=== PATIENT | female | born 1970 | race Caucasian/White ===

== ENCOUNTER 2021-07-31 09:28 | Emergency (ER) | payer SELFPAY ==
[2021-07-31] MEDS ORDERED: ADENOSINE 6 MG/ 2ML VIAL IV ONE (10:34)
[2021-07-31] MEDS ORDERED: METOPROLOL TARTRATE 5 MG/5 ML INJ IV ONE (10:35)
[2021-07-31] MEDS ORDERED: NA CHLORIDE 0.9% 1,000 ML ONE (10:35)
[2021-07-31 10:41] LABS: Absolute Lymphocytes (CBC) 1.2 K/uL (0.7-4.9); Lymphocytes % 8.1 % (15.3-44.8); MPV 9.2 fL (7.6-11.3)
[2021-07-31 10:44] LABS: Protime INR 0.91
[2021-07-31 10:44] LABS: Urine Blood Trace-intact (Negative); Urine Glucose Negative (Negative); Urine Protein Negative (Negative)
[2021-07-31] MEDS ORDERED: METOPROLOL TAR 50 MG TAB ONE (10:46)
--- NOTE | 2021-07-31 10:54 | RAD REPORT ---
EXAM DESCRIPTION: RAD - Chest Single View - 07/31/2021 10:44 am CLINICAL HISTORY: SOB Chest pain. COMPARISON: No comparisons FINDINGS: Portable technique limits examination quality. The lungs are emphysematous but grossly clear. The heart is normal in size. No displaced fractures. IMPRESSION: Mild COPD. The USPSTF recommends annual screening for lung cancer with low-dose CT (LDCT) in adults aged 50 to 80 years who have a 20 pack-year smoking history and currently smoke or have quit within the past 15 years.
[2021-07-31 11:01] LABS: ALT/SGPT 38 U/L (12-78); AST/SGOT 40 U/L (15-37); Albumin 3.3 g/dL (3.4-5.0); Alkaline Phosphatase 104 U/L (45-117); BUN Blood Urea Nitrogen 11 mg/dL (7-18); Bicarbonate 25 mmol/L (21-32); Bilirubin Direct < 0.1 mg/dL (0-0.2); Bilirubin Total 0.3 mg/dL (0.2-1.0); Glucose Level 158 mg/dL (74-106); NT PRO-BNP 2143 pg/mL (<125); Potassium 3.9 mmol/L (3.5-5.1); Protein, Total 7.7 g/dL (6.4-8.2); Sodium Level 138 mmol/L (136-145); Troponin (Emerg Dept Use Only) < 0.02 ng/mL (0.0-0.045)
--- NOTE | 2021-07-31 11:24 | EDPHYS ---
Physician Documentation [facility] Name: Renea Srivastava Age: 50 yrs Sex: Female : 1970 Arrival Date: 07/31/2021 Time: 09:29 Bed 8 Private MD: ED Physician Aries Muhammad HPI: 07/31 10:34 This 50 yrs old Female presents to ER via Ambulatory with complaints of Chest melvin Pain, Shortness Of Breath. 10:34 The patient or guardian reports chest pain that is located primarily in the substernal melvin area. Onset: just prior to arrival, this morning, today. The pain radiates to Associated signs and symptoms: Pertinent positives: dizziness, lightheadedness. The chest pain is described as a pressure. Severity of pain: At its worst the pain was mild in the emergency department the pain is unchanged. The patient has not experienced similar symptoms in the past. Historical: - Allergies: 09:49 Doxycycline; rey - Home Meds: 09:49 None [Active]; rey - PMHx: 09:49 None; rey - PSHx: 09:49 None; rey - Immunization history:: Adult Immunizations up to date. - Social history:: Smoking status: Patient reports the use of cigarette tobacco products, smokes one pack cigarettes per day. ROS: 10:35 Constitutional: Negative for fever, chills, and weight loss, Eyes: Negative for injury, melvin pain, redness, and discharge, ENT: Negative for injury, pain, and discharge, Neck: Negative for injury, pain, and swelling, Respiratory: Negative for shortness of breath, cough, wheezing, and pleuritic chest pain, Abdomen/GI: Negative for abdominal pain, nausea, vomiting, diarrhea, and constipation, Back: Negative for injury and pain, : Negative for injury, bleeding, discharge, and swelling, MS/Extremity: Negative for injury and deformity, Skin: Negative for injury, rash, and discoloration, Neuro: Negative for headache, weakness, numbness, tingling, and seizure, Psych: Negative for depression, anxiety, suicide ideation, homicidal ideation, and hallucinations, Allergy/Immunology: Negative for hives, rash, and allergies, Endocrine: Negative for neck swelling, polydipsia, polyuria, polyphagia, and marked weight changes, Hematologic/Lymphatic: Negative for swollen nodes, abnormal bleeding, and unusual bruising. 10:35 Cardiovascular: Positive for chest pain, palpitations. Exam: 10:35 Constitutional: This is a well developed, well nourished patient who is awake, alert, melvin and in no acute distress. Head/Face: Normocephalic, atraumatic. Eyes: Pupils equal round and reactive to light, extra-ocular motions intact. Lids and lashes normal. Conjunctiva and sclera are non-icteric and not injected. Cornea within normal limits. Periorbital areas with no swelling, redness, or edema. ENT: Nares patent. No nasal discharge, no septal abnormalities noted. Tympanic membranes are normal and external auditory canals are clear. Oropharynx with no redness, swelling, or masses, exudates, or evidence of obstruction, uvula midline. Mucous membranes moist. Neck: Trachea midline, no thyromegaly or masses palpated, and no cervical lymphadenopathy. Supple, full range of motion without nuchal rigidity, or vertebral point tenderness. No Meningismus. Chest/axilla: Normal chest wall appearance and motion. Nontender with no deformity. No lesions are appreciated. Respiratory: Lungs have equal breath sounds bilaterally, clear to auscultation and percussion. No rales, rhonchi or wheezes noted. No increased work of breathing, no retractions or nasal flaring. Abdomen/GI: Soft, non-tender, with normal bowel sounds. No distension or tympany. No guarding or rebound. No evidence of tenderness throughout. Back: No spinal tenderness. No costovertebral tenderness. Full range of motion. Skin: Warm, dry with normal turgor. Normal color with no rashes, no lesions, and no evidence of cellulitis. MS/ Extremity: Pulses equal, no cyanosis. Neurovascular intact. Full, normal range of motion. Neuro: Awake and alert, GCS 15, oriented to person, place, time, and situation. Cranial nerves II-XII grossly intact. Motor strength 5/5 in all extremities. Sensory grossly intact. Cerebellar exam normal. Normal gait. Psych: Awake, alert, with orientation to person, place and time. Behavior, mood, and affect are within normal limits. 10:35 Cardiovascular: Rate: tachycardic, actual rate is 167 bpm, Rhythm: regular, Pulses: Pulses are 4+ in bilateral radial, brachial, femoral, popliteal, posterior tibial and and dorsalis pedis arteries.. Heart sounds: normal, Edema: is not appreciated, JVD: is not appreciated. 10:35 ECG was reviewed by the Attending Physician. Vital Signs: 09:45 BP 114 / 102; Pulse 160; Resp 20; Temp 98.6(O); Pulse Ox 100% ; Weight 41.73 kg; Height rey 5 ft. (152.40 cm); 11:30 BP 138 / 82; Pulse 92; Resp 21; Pulse Ox 98% ; bp 12:02 BP 127 / 83; Pulse 86; Resp 28; Pulse Ox 99% ; bp 09:45 Body Mass Index 17.97 (41.73 kg, 152.40 cm) rey MDM: 10:28 Patient medically screened. melvin 11:24 Differential diagnosis: abnormal EKG, acute myocardial infarction, acute pericarditis, melvin anxiety, pleurisy, pulmonary embolus, unstable angina. HEART Score: History: Slightly Suspicious (0), ECG: Non specific repolarization disturbance / LBTB / PM (1), Age: > 45 and < 65 years (1), Risk Factors: 1 or 2 risk factors (1), [Active Smoker] [+ Family HX] Troponin: < or = 1 x Normal Limit (0). The patient was given aspirin in the Emergency Department. The patient's deep vein thrombosis risk score was calculated as follows: Total Score: 0. This patient was found to be at low risk for a deep vein thrombosis by using the Well's assessment criteria. The patient's pulmonary embolism risk score was calculated as follows: the patients heart rate is greater than 100 beats per minute (1.5 Pts) Total Score: 0-2 points. This patient was found to be at low risk for a pulmonary embolism by using the Well's assessment criteria. SOFÍA Risk Score: TOTAL SCORE = 0. Data reviewed: vital signs, nurses notes, lab test result(s), EKG, radiologic studies, plain films. Data interpreted: social media editor: rate is 168 beats/min, rhythm is supraventricular tachycardia, Pulse oximetry: on room air is 100 %. Test interpretation: by ED physician or midlevel provider: ECG, plain radiologic studies. Counseling: I had a detailed discussion with the patient and/or guardian regarding: the historical points, exam findings, and any diagnostic results supporting the discharge/admit diagnosis, lab results, radiology results, the need for outpatient follow up, for definitive care, a label tacker, a family practitioner. 07/31 10:27 Order name: Basic Metabolic Panel; Complete Time: 11:22 bp 07/31 10:27 Order name: CBC with Diff; Complete Time: 11: bp 07/31 10:27 Order name: LFT's; Complete Time: 11:22 bp 07/31 10:27 Order name: Magnesium; Complete Time: 11: bp 07/31 10:27 Order name: NT PRO-BNP; Complete Time: 11: bp 07/31 10:27 Order name: PT-INR; Complete Time: 11: bp 07/31 10:27 Order name: Troponin (emerg Dept Use Only); Complete Time: 11: bp 07/31 10:27 Order name: XRAY Chest (1 view); Complete Time: 11:22 bp 07/31 10:29 Order name: TSH melvin 07/31 10:29 Order name: Thyroid Stimulating Hormone EDMS 07/31 10:44 Order name: Urine Dipstick-Ancillary; Complete Time: 11:22 EDMS 07/31 10:49 Order name: Urine --Ancillary (enter results); Complete Time: 11:22 dh3 07/31 10:27 Order name: EKG; Complete Time: 10:27 bp 07/31 10:27 Order name: Cardiac monitoring; Complete Time: 10:35 bp 07/31 10:27 Order name: EKG - Nurse/Tech; Complete Time: 10:35 bp 07/31 10:27 Order name: IV Saline Lock; Complete Time: 10:36 bp 07/31 10:27 Order name: Labs collected and sent; Complete Time: 10:36 bp 07/31 10:27 Order name: O2 Per Protocol; Complete Time: 10:36 bp 07/31 10:27 Order name: O2 Sat Monitoring; Complete Time: 10:52 bp 07/31 10:31 Order name: Urine Dipstick-Ancillary (obtain specimen); Complete Time: 10:49 bp 07/31 10:31 Order name: Urine Test (obtain specimen); Complete Time: 10:49 bp 07/31 11:22 Order name: EKG; Complete Time: 11:23 melvin 07/31 11:22 Order name: EKG - Nurse/Tech; Complete Time: 12:02 melvin EC:35 Rate is 167 beats/min. Rhythm is regular. QRS [place] is Normal. MO interval is normal. melvin QRS interval is normal. QT interval is normal. No Q waves. T waves are Normal. No ST changes noted. Clinical impression: SVT. Interpreted by me. Reviewed by me. Administered Medications: 10:38 CANCELLED (Duplicate Order): Lopressor (metoprolol) 5 mg IVP once; Hold for SBP <100 or melvin HR <60. 10:45 Drug: NS 0.9% 1000 ml Route: IV; Rate: 1 bolus; Site: right antecubital; bp 11:33 Follow up: IV Status: Completed infusion; IV Intake: 1000ml bp 10:45 Drug: Lopressor (metoprolol TARTRATE) 50 mg Route: PO; bp 11:33 Follow up: Response: No adverse reaction bp 10:45 Drug: Lopressor (metoprolol) 2.5 mg Route: IVP; Site: right antecubital; bp 11:33 Follow up: Response: No adverse reaction bp 11:00 Drug: Aspirin Chewable Tablet 162 mg Route: PO; bp 11:33 Follow up: Response: No adverse reaction bp 11:29 Not Given (Physician Discretion): Adenocard (adenosine) 6 mg IVP once bp 11:29 Not Given (Physician Discretion): Lopressor (metoprolol) 2.5 mg IVP once; Hold for SBP bp <100 or HR <60. Disposition Summary: 07/31/21 11:23 Discharge Ordered Location: Home melvin Problem: new melvin Symptoms: have improved melvin Condition: Stable melvin Diagnosis - Supraventricular tachycardia melvin - COPD/ Chronic obstructive pulmonary disease, unspecified melvin Followup: melvin - With: Private Physician - When: 2 - 3 days - Reason: Recheck today's complaints, Continuance of care, Re-evaluation by your physician Followup: melvin - With: - When: 2 - 3 days - Reason: Recheck today's complaints, Re-evaluation by your physician Discharge Instructions: - Discharge Summary Sheet melvin - Chronic Obstructive Pulmonary Disease melvin - Supraventricular Tachycardia, Adult melvin - Supraventricular Tachycardia, Adult, [id number] melvin - Aspirin and Your Heart melvin Forms: - Medication Reconciliation Form melvin - Thank You Letter melvin - Antibiotic Education melvin - Prescription Opioid Use melvin Prescriptions: - Xopenex HFA 45 mcg/actuation Inhalation HFA aerosol inhaler - inhale 2 puff by INHALATION route every 4 hours; 1 Pump; Refills: 0, Product melvin Selection Permitted - Metoprolol Tartrate 25 mg Oral Tablet - take 1 tablet by ORAL route 2 times per day with a meal; 20 tablet; Refills: 0, melvin Product Selection Permitted - Medrol (Alfredo) 4 mg Oral Tablets, Dose Pack - take 1 tablet by ORAL route as directed - follow package instructions; 1 melvin packet; Refills: 0, Product Selection Permitted Signatures: Dispatcher [employer] Aries Hobbs MD MD cha Peltier, Brian RN RN bp Au-StagerLisa Corrections: (The following items were deleted from the chart) 10:38 10:29 Lopressor (metoprolol) 5 mg IVP once; Hold for SBP <100 or HR <60. ordered. melvin charles
--- NOTE | 2021-07-31 11:24 | ER ---
Nurse's Notes [facility] Name: Renea Srivastava Age: 50 yrs Sex: Female : 1970 Arrival Date: 07/31/2021 Time: 09:29 Bed 8 Private MD: Diagnosis: Supraventricular tachycardia;COPD/ Chronic obstructive pulmonary disease, unspecified Presentation: 07/31 09:45 Chief complaint: Patient states: chest pain, SOB. Coronavirus screen: Vaccine status: rye Patient reports being unvaccinated. Ebola Screen: Patient denies travel to an Ebola-affected area in the 21 days before illness onset. Initial Sepsis Screen: Does the patient meet any 2 criteria? No. Patient's initial sepsis screen is negative. Does the patient have a suspected source of infection? No. Patient's initial sepsis screen is negative. Initial Sepsis Screen: Does the patient meet any 2 criteria? RR > 20 per min. HR > 90 bpm. Initial Sepsis Screen: Does the patient meet any 2 criteria? Yes No. Patient's initial sepsis screen is negative. Does the patient have a suspected source of infection?. Risk Assessment: Do you want to hurt yourself or someone else? Patient reports no desire to harm self or others. Onset of symptoms was July 30, 2021. 09:45 Method Of Arrival: Ambulatory rey 09:45 Acuity: STEPHEN 3 rey Triage Assessment: 09:49 General: Appears in no apparent distress. Behavior is calm, cooperative. rey Cardiovascular: Chest pain. Historical: - Allergies: 09:49 Doxycycline; rey - Home Meds: 09:49 None [Active]; rey - PMHx: 09:49 None; rey - PSHx: 09:49 None; rey - Immunization history:: Adult Immunizations up to date. - Social history:: Smoking status: Patient reports the use of cigarette tobacco products, smokes one pack cigarettes per day. Screenin:00 Abuse screen: Denies threats or abuse. Denies injuries from another. Nutritional bp screening: No deficits noted. Tuberculosis screening: No symptoms or risk factors identified. Fall Risk None identified. Assessment: 09:50 General: SEE TRIAGE NOTE. bp 11:15 Reassessment: PT CONVERTED TO SR. MD NOTIFIED. bp 12:02 Reassessment: PT D/C HOME AMBULATORY WITH FAMILY, DX WITH COPD AND SVT. bp Vital Signs: 09:45 BP 114 / 102; Pulse 160; Resp 20; Temp 98.6(O); Pulse Ox 100% ; Weight 41.73 kg; Height rey 5 ft. (152.40 cm); 11:30 BP 138 / 82; Pulse 92; Resp 21; Pulse Ox 98% ; bp 12:02 BP 127 / 83; Pulse 86; Resp 28; Pulse Ox 99% ; bp 09:45 Body Mass Index 17.97 (41.73 kg, 152.40 cm) rey ED Course: 09:29 Patient arrived in ED. as 09:49 Triage completed. rey 09:49 Arm band placed on. rey 10:00 Patient has correct armband on for positive identification. Placed in gown. Bed in low mh5 position. Call light in reach. Side rails up X 1. Adult w/ patient. Warm blanket given. engine monitor on. Pulse ox on. NIBP on. 10:00 EKG done, by ED staff, reviewed by Aries Muhammad MD. health system 10:07 Abdoul Dorman, FAISAL is Primary Nurse. bp 10:28 Aries Muhammad MD is Attending Physician. [facility] 10:35 Thyroid Stimulating Hormone Sent. 5 10:35 TSH Sent. 5 10:36 Basic Metabolic Panel Sent. 5 10:36 CBC with Diff Sent. 5 10:36 LFT's Sent. 5 10:36 Magnesium Sent. 5 10:36 NT PRO-BNP Sent. health system 10:36 PT-INR Sent. health system 10:36 Troponin (emerg Dept Use Only) Sent. health system 10:36 Initial lab(s) drawn, by wa, sent to lab. Urine collected: clean catch specimen, clear. 5 Inserted saline lock: 20 gauge in left antecubital area, using aseptic technique. Blood collected. 10:44 XRAY Chest (1 view) In Process Unspecified. EDMS 11:23 Quinn White MD is Referral Physician. [facility] 12:03 No provider procedures requiring assistance completed. IV discontinued, intact, bp bleeding controlled, No redness/swelling at site. Pressure dressing applied. Patient maintains SpO2 saturation greater than 95% on room air. Administered Medications: 10:38 CANCELLED (Duplicate Order): Lopressor (metoprolol) 5 mg IVP once; Hold for SBP <100 or melvin HR <60. 10:45 Drug: NS 0.9% 1000 ml Route: IV; Rate: 1 bolus; Site: right antecubital; bp 11:33 Follow up: IV Status: Completed infusion; IV Intake: 1000ml bp 10:45 Drug: Lopressor (metoprolol TARTRATE) 50 mg Route: PO; bp 11:33 Follow up: Response: No adverse reaction bp 10:45 Drug: Lopressor (metoprolol) 2.5 mg Route: IVP; Site: right antecubital; bp 11:33 Follow up: Response: No adverse reaction bp 11:00 Drug: Aspirin Chewable Tablet 162 mg Route: PO; bp 11:33 Follow up: Response: No adverse reaction bp 11:29 Not Given (Physician Discretion): Adenocard (adenosine) 6 mg IVP once bp 11:29 Not Given (Physician Discretion): Lopressor (metoprolol) 2.5 mg IVP once; Hold for SBP bp <100 or HR <60. Intake: 11:33 IV: 1000ml; Total: 1000ml. bp Outcome: 11:23 Discharge ordered by . melvin 12:03 Discharged to home ambulatory, with family. bp 12:03 Condition: stable 12:03 Discharge instructions given to patient, Instructed on discharge instructions, follow up and referral plans. medication usage, Demonstrated understanding of instructions, follow-up care, medications, Prescriptions given X 3. 12:04 Patient left the ED. bp Signatures: Dispatcher [employer] EDAries Isabel MD MD cha Martinez, Sita Harris 5 Abdoul Dorman, RN RN bp Au-Stager, Lisa rey
[2021-07-31 12:08] VITALS: TEMP 98.6
[2021-07-31 12:11] VITALS: BP 127/83; O2SAT 99
== END 2021-07-31 12:04 | disposition home or self-care (01) ==
LOC: ER 09:28
DX: I47.1 Supraventricular tachycardia (principal); J44.9 Chronic obstructive pulmonary disease, unspecified; Z88.3 Allergy status to other anti-infective agents; F17.210 Nicotine dependence, cigarettes, uncomplicated
CPT/HCPCS: 36415; 71045; 80048; 80076; 81003; 81025; 83735; 83880; 84443; 84484; 85025; 85610; 93005; 96361; 96374; 99285; J0153; J7030